=== PATIENT | male | born 1950 | race Caucasian/White ===

== ENCOUNTER → 2023-06-27 08:18 | Outpatient (REF) | payer OTHER, SELFPAY ==
[2023-06-27 11:48] LABS: % Basophils 0.9 % (0-2); % Eosinophils 6.6 % (0-6); % Immature Granulocytes 0.2 % (0-0.5); % Monocytes 9.6 % (1.7-9.3); % Neutrophils 55.7 % (42.2-75.2); Absolute Basophils 0.1 10^3/uL (0-0.2); Absolute Eosinophils 0.4 10^3/uL (0-0.7); Absolute Lymphocytes 1.5 10^3/uL (1.2-3.4); Absolute Monocytes 0.5 10^3/uL (0.1-0.6); Absolute Neutrophils 3.2 10^3/uL (1.4-6.5); Hematocrit 45.6 % (39.0-52.0); Hemoglobin 15.6 g/dL (13.0-18.0); Mean Corp Hgb Conc. 34.2 g/dL (33.0-37.0); Mean Corpuscular Hgb 32.8 pg (27.0-31.0); Nucleated Red Blood Cells % 0 % (-); Platelet Count 185 10^3/uL (130-400); Red Blood Cell Count 4.75 10^6/uL (4.70-6.10); White Blood Cell Count 5.6 10^3/uL (4.8-10.8)
[2023-06-27 12:31] LABS: ALT (SGPT) 30 U/L (0-50); AST (SGOT) 32 U/L (17-59); Alkaline Phosphatase 62 U/L (38-126); Blood Urea Nitrogen 23 mg/dl (9-20); Calcium 9.2 mg/dl (8.4-10.2); Carbon Dioxide 27 mmol/L (22-30); Chloride 104 mmol/L (98-107); Glucose 111 mg/dl (70-99); HDL Cholesterol 39 mg/dl; LDL Cholesterol, Calculated 64 mg/dl; Potassium 4.1 mmol/L (3.5-5.1); Sodium 139 mmol/L (135-145); Total Bilirubin 1.1 mg/dl (0.2-1.3); Total Cholesterol 121 mg/dl (50-199); Total Protein 6.4 g/dl (6.3-8.2); Triglyceride 92 mg/dl (10-149); Very Low Density Lipoprotein 18 mg/dl (0-30); eGFR > 60.00
[2023-06-27 13:00] LABS: PSA, Total - Screen 1.89 ng/ml (0.0-4.0)
[2023-06-27 14:26] LABS: Glycohemoglobin (HgbA1c) 6.1 % (4.0-5.6)
== END ==
LOC: HWLAB 08:18
PROVIDERS: ATTENDING PHYSICIAN Family Medicine
DX: R73.02 Impaired glucose tolerance (oral) (principal); I25.10 Atherosclerotic heart disease of native coronary artery without angina pectoris; I10 Essential (primary) hypertension; Z79.01 Long term (current) use of anticoagulants; Z12.5 Encounter for screening for malignant neoplasm of prostate
CPT/HCPCS: 36415; 80053; 80061; 83036; 85025; G0103

== ENCOUNTER → 2023-07-06 06:26 | Outpatient (REF) | payer OTHER, SELFPAY | LOC: HWLAB 06:26 | PROVIDERS: ATTENDING PHYSICIAN Family Medicine; REFERRING PHYSICIAN Student in an Organized Health Care Education/Training Program | DX: M25.571 Pain in right ankle and joints of right foot (principal) | CPT/HCPCS: 73610 ==

== ENCOUNTER → 2023-09-07 09:38 | Outpatient (REF) | payer OTHER, SELFPAY | LOC: HWRAD 09:38 | PROVIDERS: ATTENDING PHYSICIAN Family Medicine | DX: J98.9 Respiratory disorder, unspecified (principal); R50.9 Fever, unspecified | CPT/HCPCS: 71046 ==

== ENCOUNTER → 2024-01-07 10:33 | Outpatient (REF) | payer OTHER, SELFPAY | LOC: HWRAD 10:33 | PROVIDERS: ATTENDING PHYSICIAN Internal Medicine | DX: B34.9 Viral infection, unspecified (principal); R06.89 Other abnormalities of breathing | CPT/HCPCS: 71046 ==

== ENCOUNTER → 2024-05-07 13:39 | Outpatient (REF) | payer OTHER, SELFPAY | LOC: HWRCS 13:39 | PROVIDERS: ATTENDING PHYSICIAN Internal Medicine Cardiovascular Disease; FAMILY PHYSICIAN Family Medicine | DX: Z95.2 Presence of prosthetic heart valve (principal); I10 Essential (primary) hypertension | CPT/HCPCS: 93306 ==

== ENCOUNTER → 2024-05-13 08:29 | Outpatient (REF) | payer OTHER, SELFPAY | LOC: DHCBC/DCA 08:29 | PROVIDERS: ATTENDING PHYSICIAN Internal Medicine Cardiovascular Disease; FAMILY PHYSICIAN Family Medicine | DX: Z95.2 Presence of prosthetic heart valve (principal) | CPT/HCPCS: 78452; 93017; A9500; J2785 ==

== ENCOUNTER → 2024-05-15 10:34 | Outpatient (REF) | payer OTHER, SELFPAY ==
[2024-05-15 12:39] LABS: % Basophils 0.7 % (0-2); % Eosinophils 6.7 % (0-6); % Immature Granulocytes 0.4 % (0-0.5); % Lymphocytes 24.3 % (20.5-51.1); % Monocytes 11.1 % (1.7-9.3); % Neutrophils 56.8 % (42.2-75.2); Absolute Eosinophils 0.4 10^3/uL (0-0.7); Absolute Lymphocytes 1.4 10^3/uL (1.2-3.4); Absolute Monocytes 0.6 10^3/uL (0.1-0.6); Absolute Neutrophils 3.2 10^3/uL (1.4-6.5); Hematocrit 46.8 % (39.0-52.0); Hemoglobin 15.5 g/dL (13.0-18.0); Mean Corp Hgb Conc. 33.1 g/dL (33.0-37.0); Mean Corpuscular Hgb 32.2 pg (27.0-31.0); Mean Corpuscular Volume 97.3 fL (80.0-94.0); Mean Platelet Volume 10.8 fL (7.4-10.4); Nucleated Red Blood Cells % 0 % (-); Platelet Count 216 10^3/uL (130-400); Red Blood Cell Count 4.81 10^6/uL (4.70-6.10); Red Cell Dist. Width 12.5 % (11.5-14.5); White Blood Cell Count 5.7 10^3/uL (4.8-10.8)
[2024-05-15 12:56] LABS: ALT (SGPT) 30 U/L (0-50); AST (SGOT) 33 U/L (17-59); Albumin 4.5 g/dl (3.5-5.0); Alkaline Phosphatase 46 U/L (38-126); Blood Urea Nitrogen 21 mg/dl (9-20); Calcium 9.4 mg/dl (8.4-10.2); Carbon Dioxide 32 mmol/L (22-30); Chloride 101 mmol/L (98-107); Glucose 99 mg/dl (70-99); Potassium 4.6 mmol/L (3.5-5.1); Sodium 138 mmol/L (135-145); Total Bilirubin 0.9 mg/dl (0.2-1.3); Total Protein 6.9 g/dl (6.3-8.2); eGFR > 60.00
== END ==
LOC: HWLAB 10:34
PROVIDERS: ATTENDING PHYSICIAN Internal Medicine Cardiovascular Disease; FAMILY PHYSICIAN Family Medicine
DX: Z95.2 Presence of prosthetic heart valve (principal); I10 Essential (primary) hypertension; I25.10 Atherosclerotic heart disease of native coronary artery without angina pectoris; R94.39 Abnormal result of other cardiovascular function study; Z95.1 Presence of aortocoronary bypass graft; I25.118 Atherosclerotic heart disease of native coronary artery with other forms of angina pectoris
CPT/HCPCS: 36415; 80053; 85025

== ENCOUNTER 2024-05-22 09:43 | Day surgery (SDC) | payer OTHER, SELFPAY ==
[2024-05-22] VITALS (11 sets, daily range): BP systolic 151–205; BP diastolic 72–101; BMI 27.2
[2024-05-22 10:28] LABS: INR 1.26; PT 16.3 Sec (11.4-14.6)
[2024-05-22] MEDS: ASPIR LOW (ENTERIC COATED) 81 MG PO (10:36)
--- NOTE | 2024-05-22 13:29 | ITS.CL.PN ---
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
Procedure
Procedure Note:
CARDIAC CATHETERIZATION REPORT
Date of Procedure: 05/22/2024
Referring: Dr. Wellington Fierro MD
Indication: anginal chest pain, positive stress test
PROCEDURE(S)
1. coronary angiography
2. bypass graft angiography
ACCESS: 6F left radial artery (closure: radial band)
CATHETERS
1. 6F GERALDO
2. 6F JL4
2. 6F JR4
CORONARY ANGIOGRAPHY
Dominance: right
LM: large vessel with a distal 60% stenosis involving the LCx/LAD bifurcation (1,0,0).
LAD: large vessel giving rise to a large D1 before being totally occluded in the mid section. There is an 80% stenosis in the proximal LAD before D1. The takeoff of D1 is in an aneurysmal segment. Other than the total occlusion, the vessel is
largely unchanged from prior angiography in 2013.
LCx: moderate caliber vessel giving rise to a moderate caliber OM1 and small OM2. The OM1 is subtotally occluded proximally and fills via the SVG. The remainder of the vessel has diffuse mild disease. The vessel is largely unchanged in appearance
from 2013.
RCA: large vessel giving rise to a moderate caliber RPDA and single RPL branch. There is diffuse moderate-severe disease in the mid-distal RCA. The RPDA is supplied via the SVG and provides retrograde flow to the RPL. The vessel is largely unchanged
in appearance from 2013.
BYPASS GRAFT ANGIOGRAPHY:
TIRADO-LAD: the TIRADO is taken as a pedicle and forms an anastomosis with the mid-LAD. The LAD fills retrograde back to a total occlusion. The LAD provides L-L collateral to the D2.
FFR-KT0-ARQR: the SVG is patent and forms a proximal side-wall anastomosis to the OM1 and goes on to supply a distal end anastomosis to the RPDA.
CONCLUSIONS
1. severe coronary artery disease status post-CABG. There has been progression of disease since 2014, with a now total occlusion in the mid-LAD prior to the large D2. This vessel has faint collaterals from distal LAD branches via the TIRADO.
Percutaneous revascularization of the LAD-D2 [employer] would be challenging given there was already significant calcific disease at the bifurcation prior progression to total occlusion. A reasonable approach would be aggressive titration of anti-anginal
medications to maximally tolerated doses. If this is unsuccessful, we would proceed with antegrade wire escalation attempt. Initially plan would be to stent only the mid-LAD into the D2 and not address the LM and proximal LAD disease as this has
been unchanged for years. If unsuccessful with AWE, referral to a dedicated [employer] finger lift operator for re-attempt with possible ADR would be offered.
2. Will start amlodipine 5 mg today
3. Continue aggressive secondary prevention of coronary artery disease
4. Expectant management after cardiac catheterization via right radial approach
Copy to: Dr. Wellington Fierro MD (supervisor blast furnace); Dr. Roberta Frances DO (PCP)
Signed: Alexey Corrales MD, PhD
[2024-05-22] MEDS: NORVASC 5 MG PO (13:33)
[2024-05-22] MEDS: DIOVAN 80 MG PO (13:34)
[2024-05-22] MEDS: NSS 366 IV (13:34)
[2024-05-22] MEDS: COREG 6.25 MG PO (13:34)
== END 2024-05-22 16:00 | disposition home or self-care (01) ==
LOC: CATH 09:43
PROVIDERS: ATTENDING PHYSICIAN Student in an Organized Health Care Education/Training Program; FAMILY PHYSICIAN Family Medicine; OTHER PHYSICIAN Internal Medicine Cardiovascular Disease
DX: I25.119 Atherosclerotic heart disease of native coronary artery with unspecified angina pectoris (principal); I25.82 Chronic total occlusion of coronary artery; Z95.1 Presence of aortocoronary bypass graft; Z79.899 Other long term (current) drug therapy; Z79.01 Long term (current) use of anticoagulants
CPT/HCPCS: 85610; 93459; C1894; Q9967

== ENCOUNTER → 2024-07-02 06:35 | Outpatient (REF) | payer OTHER, SELFPAY ==
[2024-07-02 09:29] LABS: % Basophils 1.2 % (0-2); % Eosinophils 6.7 % (0-6); % Immature Granulocytes 0.2 % (0-0.5); % Lymphocytes 26.9 % (20.5-51.1); % Monocytes 10.3 % (1.7-9.3); % Neutrophils 54.7 % (42.2-75.2); Absolute Basophils 0.1 10^3/uL (0-0.2); Absolute Eosinophils 0.4 10^3/uL (0-0.7); Absolute Lymphocytes 1.6 10^3/uL (1.2-3.4); Absolute Monocytes 0.6 10^3/uL (0.1-0.6); Absolute Neutrophils 3.2 10^3/uL (1.4-6.5); Hematocrit 44.1 % (39.0-52.0); Hemoglobin 15.1 g/dL (13.0-18.0); Mean Corp Hgb Conc. 34.2 g/dL (33.0-37.0); Mean Corpuscular Hgb 32.3 pg (27.0-31.0); Mean Corpuscular Volume 94.4 fL (80.0-94.0); Mean Platelet Volume 10.1 fL (7.4-10.4); Nucleated Red Blood Cells % 0 % (-); Platelet Count 204 10^3/uL (130-400); Red Blood Cell Count 4.67 10^6/uL (4.70-6.10); Red Cell Dist. Width 12.7 % (11.5-14.5); White Blood Cell Count 5.8 10^3/uL (4.8-10.8)
[2024-07-02 09:40] LABS: ALT (SGPT) 28 U/L (0-50); AST (SGOT) 32 U/L (17-59); Albumin 4.6 g/dl (3.5-5.0); Alkaline Phosphatase 63 U/L (38-126); Blood Urea Nitrogen 22 mg/dl (9-20); Calcium 9.4 mg/dl (8.4-10.2); Carbon Dioxide 29 mmol/L (22-30); Chloride 104 mmol/L (98-107); Glucose 106 mg/dl (70-99); HDL Cholesterol 41 mg/dl; LDL Cholesterol, Calculated 67 mg/dl; Potassium 4.1 mmol/L (3.5-5.1); Sodium 140 mmol/L (135-145); Total Bilirubin 1.4 mg/dl (0.2-1.3); Total Cholesterol 129 mg/dl (50-199); Total Protein 6.9 g/dl (6.3-8.2); Triglyceride 105 mg/dl (10-149); Very Low Density Lipoprotein 21 mg/dl (0-30); eGFR > 60.00
[2024-07-02 10:06] LABS: Glycohemoglobin (HgbA1c) 5.7 % (4.0-5.6)
[2024-07-02 10:07] LABS: Urine Albumin Negative (Neg - Trace); Urine Bilirubin Negative (Negative); Urine Character Clear (Clear); Urine Color Yellow; Urine Glucose Negative (Negative); Urine Ketone Negative (Negative); Urine Leukocyte Negative (Negative); Urine Nitrite Negative (Negative); Urine Occult Blood 1+ (Negative); Urine Specific Gravity 1.025 (<1.030); Urine Urobilinogen Negative (Neg - 1+)
[2024-07-02 10:20] LABS: PSA, Total - Screen 1.71 ng/ml (0.0-4.0)
[2024-07-02 10:23] LABS: Urine Red Blood Cell 0-2 /HPF (0-2); Urine Squamous Cell 0-2 /LPF (Few); Urine White Cell 0-2 /HPF (0-5)
== END ==
LOC: HWLAB 06:35
PROVIDERS: ATTENDING PHYSICIAN Family Medicine
DX: Z12.5 Encounter for screening for malignant neoplasm of prostate (principal); I10 Essential (primary) hypertension; I25.10 Atherosclerotic heart disease of native coronary artery without angina pectoris; E78.00 Pure hypercholesterolemia, unspecified; Z00.00 Encounter for general adult medical examination without abnormal findings; R73.01 Impaired fasting glucose; Z95.2 Presence of prosthetic heart valve; Z79.01 Long term (current) use of anticoagulants
CPT/HCPCS: 36415; 80053; 80061; 81003; 81015; 83036; 85025; G0103

== ENCOUNTER → 2024-11-10 09:25 | Outpatient (REF) | payer OTHER, SELFPAY | LOC: HWRAD 09:25 | PROVIDERS: ATTENDING PHYSICIAN Nurse Practitioner Family | DX: M25.561 Pain in right knee (principal); M54.50 Low back pain, unspecified; M79.661 Pain in right lower leg | CPT/HCPCS: 72110 ==

== ENCOUNTER 2024-11-28 20:56 | Emergency (ER) | payer OTHER, SELFPAY ==
[2024-11-28 20:59] VITALS: BP 136/80
[2024-11-28 22:40] LABS: INR 1.93; PT 22.2 Sec (11.4-14.6)
--- NOTE | 2024-11-28 23:02 | ED.GENMED ---
History of Present Illness
General
Chief Complaint: Swelling
Source: patient
Exam Limitations: none
Time Seen by Provider: 11/28/24 21:30
Nursing documentation reviewed up to this point in time: agreed with
History of Present Illness
History of Present Illness:
74-year-old male with history of aortic valve replacement and CABG currently on Coumadin who presents to the emergency department for evaluation of right leg pain. Patient reports that he had some aching behind the right knee about a month ago for
which he was seen in urgent care with negative x-rays. He says that over the past week or 2 he has noticed increased pain and swelling in the right calf. Came to the ER with concern for a blood clot. He denies any other symptoms including chest
pain or shortness of breath. He denies any trauma or injury. He says his last INR on Sunday was 3.7.
Past History
Past History
ED Past Medical History: CAD and HTN
ED Past Surgical History: Cardiac
Social History
Tobacco: Non-smoker
Alcohol: None
Drug: None
Personal:
Living: with family
Employment: Retired
Family History
Family History: Other (Noncontributory)
Review of Systems
Review of Systems
All Other Systems: ROS reviewed and negative except as documented in HPI and ROS
Respiratory: Denies trouble breathing
Cardiac: Denies chest pain
Musculoskeletal: Reports muscle pain and edema
Phy Exam
Physical Exam
Physical Exam:
General: Awake, alert, oriented x3; no acute distress
Head: Normocephalic, atraumatic
Eyes: Conjunctiva normal
Throat: Airway intact, handling secretions
Lungs: Breathing comfortably no distress
Heart: Regular rate
Neuro: No gross deficits
Extremities: Patient has +1 edema in the right lower extremity with some warmth of the right calf and tenderness in the right calf; he has strong femoral, popliteal, DP pulses right lower extremity; no swelling or tenderness in the left lower
extremity and good pulses throughout
Scores
Heart Failure Risk
Heart Failure Risk Score: Not Applicable
Heart Score for Chest Pain Patients
STEMI patient?: Not applicable
Withdrawal Assessment of Alcohol
Withdrawal Assessment Completed?: Not applicable
Course
Orders/Labs/Results
Orders:
Orders
11/28/24 21:31
US Periph Venous LOWER Ext RT Urgent
Comment:
Reason For Exam: RLE pain and swelling
11/28/24 22:25
Prothrombin Time Urgent
Abnormal Lab Results
11/28/24
22:25
PT 22.2 H Sec
(11.4-14.6)
Vital Signs
Initial and Last Documented VS:
Initial Vital Signs
Temp Pulse Resp BP Pulse Ox
36.4 C 62 18 136/80 96
11/28/24 20:59 11/28/24 20:59 11/28/24 20:59 11/28/24 20:59 11/28/24 20:59
Last Documented Vital Signs
Temp Pulse Resp BP Pulse Ox
36.4 C 62 18 136/80 96
11/28/24 20:59 11/28/24 20:59 11/28/24 20:59 11/28/24 20:59 11/28/24 20:59
MDM/Problems Addressed
Differential Diagnosis Includes:
DVT, calf strain, Martinez's cyst
MDM/Problems Addressed:
74-year-old male presents for evaluation of atraumatic right calf pain over the past few weeks associate with swelling. Vitals and exam as above. Sent for an ultrasound of the leg which showed no DVT but signs consistent with a Martinez's cyst. INR
was slightly subtherapeutic�patient took 10 mg dose of Coumadin tonight and will follow-up INR on Sunday. Stable for discharge�we spoke about supportive care, follow-up plan. All questions answered.
Chronic conditions affecting care:
Cardiac history on Coumadin
*Pulse Oximetry
SaO2: 96
Oxygen Mode of Delivery: Room air
Patient hypoxic: no (96%)
*Critical Care Note
Total Time (30-74mins, 75-104mins- exclusive of procedures): Not Applicable
Data Reviewed
Source: patient
ED Attending Note
-
Portions of this chart may have been created with voice recognition software.� Occasional wrong word or��sound alike� substitutions may have occurred due to the inherent limitations of voice recognition software.
Discharge Plan
Departure
Patient Disposition: Home (Routine Discharge)
Date of Disposition: 11/28/24
Time of Disposition: 22:37
Patient with high blood pressure during this ER visit?: No
Discharge Problem:
Martinez's cyst
Instructions: Martinez's Cyst (DC)
Prescriptions:
No Action
warfarin [Jantoven] 10 MG tablet
10 mg PO SUMOTUTHFR
Patient Comments:
TAKES 10 MG ON [id number]
nitroglycerin 0.4 MG tablet, sublingual
0.4 mg sublingual [id number] PRN (Reason: chest pain)
warfarin [Jantoven] 7.5 MG tablet
5 mg PO WESA
acetaminophen [Tylenol Extra Strength] 500 MG tablet
1,000 mg PO BIDPRN PRN (Reason: pain)
coenzyme V20-mtuclye E [Co Q-10 (with Vit E)] 1 EACH capsule
1 ea PO DAILY
multivitamin with folic acid [Tab-A-Rose] 1 TABLET tablet
1 tab PO DAILY
carvedilol 6.25 mg Tablet
6.25 mg PO BID
valsartan 80 mg Tablet
80 mg PO DAILY
aspirin 81 mg Tablet,Chewable
81 mg PO DAILY
amoxicillin-pot clavulanate 1 TABLET tablet
1 tab PO Q12 PRN (Reason: for dentist visits)
amlodipine 5 mg tablet
5 mg PO DAILY Qty: 90 5RF
Referrals:
Roberta Frances DO [Family Provider, Family Practice] - Follow up in 1 week
Activity Restrictions/Additional Instructions:
Thank you for visiting the Emergency Department at [facility].
1. Please schedule a follow up appointment as directed. Call first thing tomorrow morning to make an appointment.
2. If indicated, please take your medications as instructed and indicated on discharge paperwork.
3. If any of your symptoms do not improve, or persist, or become more severe within 6-12 hours, please return to the emergency department for further care.
4. Please return to the emergency department if you develop a headache, neck pain/stiffness, fever greater than 100.4F, chest pain, shortness of breath, persistent nausea, vomiting, slurred speech, difficulty walking, numbness/tingling, weakness,
signs of infection or any other symptoms that are worrisome to you.
Please call [phone] if you have any questions.
Interventions
Interventions:
*Risk Screen - Suicide Last Done: 11/28/24 20:59
*Neglect/Abuse Screening Last Done: 11/28/24 20:59
*ED- Fall Risk Assessment Last Done: 11/28/24 23:01
*Nursing Disposition Last Done: 11/28/24 23:01
ED- Cardiac Assessment Last Done: 11/28/24 23:01
ED- Pulmonary Assessment Last Done: 11/28/24 23:01
ED-Skin Assessment Last Done: 11/28/24 23:01
Discharge Date and Time
Print Language: [place]
== END 2024-11-28 23:03 | disposition home or self-care (01) ==
LOC: EMR 20:56
PROVIDERS: EMERGENCY PHYSICIAN Emergency Medicine; FAMILY PHYSICIAN Family Medicine
DX: M71.21 Synovial cyst of popliteal space [Baker], right knee (principal); M79.604 Pain in right leg; I25.10 Atherosclerotic heart disease of native coronary artery without angina pectoris; I10 Essential (primary) hypertension; Z79.01 Long term (current) use of anticoagulants; Z95.1 Presence of aortocoronary bypass graft; Z95.2 Presence of prosthetic heart valve
CPT/HCPCS: 99284; 85610; 93971

== ENCOUNTER → 2025-05-11 08:07 | Outpatient (REF) | payer OTHER, SELFPAY | LOC: HWRCS 08:07 | PROVIDERS: ATTENDING PHYSICIAN Internal Medicine Cardiovascular Disease; FAMILY PHYSICIAN Family Medicine | DX: Z95.2 Presence of prosthetic heart valve (principal) | CPT/HCPCS: 93306 ==